=== PATIENT | male | born 1960 | race Caucasian/White ===

== ENCOUNTER → 2016-04-12 | Outpatient (CLI) | payer BC ==
[~2016-04-12] MED LIST: AMBIEN 10 MG TA10 MG PO; CYCLOBENZAPRINE10 MG PO; DOCUSATE SODIU100 MG PO; EFFEXOR XR75 MG PO; LIDODERM TP; NAPROSYN500 MG PO; NEURONTIN 400400 M1 PO; OXYCODONE-APAP1 EAC4 PO; PERCOCET 5-3251 EACH PO; TRAMADOL PO; VICODIN 5-5001 EACH PO
== END ==
LOC: ULTRA 11:01
DX: R94.4 Abnormal results of kidney function studies (principal)

== ENCOUNTER → 2016-04-26 | Outpatient (CLI) | payer BC ==
--- NOTE | ~2016-04-26 | CARDNUC ---
[facility] [place] [address] CARDIAC NUCLEAR IMAGING REPORT Name: FRANCIS CONKLIN GANESH Room #: REG CL [facility]#: [id number] Admission: 04/26/16 Attend Phys: Chente Licea MD Discharge: Date of : 60 Date of Service: 04/26/16 1646 Report #: [id number] THIS REPORT FOR: //name// CC: Chente Beauchamp DATE OF SERVICE: 04/26/2016 Stress myocardial perfusion imaging study. DATE OF STUDY: 04/26/2016. PRIMARY CARE PHYSICIAN: Jie Beauchamp DO GENDER: Male. LENS HARDENER: Chente Licea MD INDICATION: Chest pain. CORONARY HISTORY: None. CARDIOVASCULAR RISK FACTORS: Age and strong family history. CARDIAC MEDICATIONS: None. TYPE OF STUDY: The patient underwent a SPECT study. STRESS PROTOCOL: The patient exercised for 8 minutes and 45 seconds using a standard Garrett protocol. The resting heart rate was 77 beats per minute, increasing to 153 beats per minute during maximal exercise. This represented 93% of the maximum predicted heart rate for age. The resting blood pressure is 160/100 mmHg with no significant change during exercise. The work load achieved was approximately 10.1 METS. The test was terminated due the development of chest discomfort. ELECTROCARDIOGRAM: The resting electrocardiogram revealed sinus rhythm, otherwise normal. During exercise, there were no significant arrhythmias or ST segment changes. PERFUSION IMAGING: Myocardial perfusion imaging was performed using Cardiolite, 11.0 mCi for the resting images and 33.9 mCi for the stress images. This was a same-day rest-stress imaging protocol. Gated SPECT images were obtained. Comparison of the post-stress and rest images reveal a moderate sized reversible defect in the inferior wall. The gated portion of the study revealed normal [facility] [address] [place] [address] CARDIAC NUCLEAR IMAGING REPORT Name: FRANCIS CONKLIN Room #: REG CL [facility]#: [id number] Admission: 04/26/16 Attend Phys: Chente Licea MD Discharge: Date of : 60 Date of Service: 04/26/16 164 Report #: [id number] global and segmental LV systolic function, ejection fraction of 56%. IMPRESSION: 1. Clinical response, ischemic. 2. Stress ECG response, nonischemic. 3. Perfusion imaging, ischemia. 4. Ventricular function normal. CONCLUSION: This study reveals inferior wall ischemia. There is normal global and segmental LV systolic function. <ELECTRONICALLY SIGNED> By: Chente Licea MD 04/27/16 0757 1646 1726 Chente Licea MD /nt
== END ==
LOC: NUC 08:13
DX: R07.9 Chest pain, unspecified (principal)

== ENCOUNTER → 2016-05-01 | Outpatient (CLI) | payer BC ==
[~2016-05-01] VITALS: Ht 175.3 cm; Wt 91.6 kg
--- NOTE | ~2016-05-01 | CATHLAB ---
[facility] [address] [email or web address] [address] INVASIVE PROCEDURE REPORT Name: FRANCIS CONKLIN Room #: REG CL [facility]#: [id number] Admission: 05/01/16 Attend Phys: Chente Licea MD Discharge: Date of : 60 Date of Service: 05/01/16 1202 Report #: [id number] THIS REPORT FOR: //name// CC: Chente Beauchamp DATE OF SERVICE: 05/01/2016 INDICATIONS: Unstable angina, abnormal stress test. Full risks, benefits and alternatives of cardiac catheterization were explained to the patient. All questions were answered. Informed consent was obtained. A Barbeau test was performed on the right radial artery. The right wrist area was prepped and draped in a sterile manner. Lidocaine was given subcutaneously. A 5-Georgian sheath was inserted into the right radial artery via modified Seldinger technique. Nitroglycerin and verapamil was injected through the sheath. 5000 units of heparin was given through peripheral IV. CORONARY ANATOMY: The left main artery is a large caliber vessel, with no flow-limiting lesions. The LAD is a moderate to large size caliber vessel, travelling down the anterior wall and wrapping around the apex. There were no flow-limiting lesions in the LAD. There appears to be some mild ectatic areas in the proximal segment of the LAD. Within the ectatic area, there may be some minimal luminal irregularities noted. The left circumflex artery is a moderate to large size caliber vessel, dominant as it supplies a PDA in the distal segment. There were no flow-limiting lesions in the left circumflex. The first obtuse marginal artery is a moderate sized caliber vessel with an ectatic area in the proximal segment. After the ectatic area, it bifurcates into superior and inferior branch. There were no limiting lesions within these branches. The remaining segments of the left circumflex artery have no flow-limiting lesions. The RCA is a small, nondominant vessel with minimal luminal irregularities noted in the mid segment. A left ventriculogram was performed revealing normal LV systolic function, ejection fraction of 55%. The LVEDP is approximately 20 mmHg. There is no gradient across the outflow tract. At the end of the procedure, the sheath was removed and a Vasc band was applied for hemostasis. IMPRESSION: [facility] [address] [place] [address] INVASIVE PROCEDURE REPORT Name: FRANCIS CONKLIN Room #: REG [id number] Admission: 05/01/16 Attend Phys: Chente Licea MD Discharge: Date of : 60 Date of Service: 05/01/16 1202 Report #: [id number] 1. Patent [place] coronary arteries with a left dominant circumflex system. 2. Ectatic segments are noted in the proximal left anterior descending and proximal segment of the first obtuse marginal artery. 3. Minimal luminal irregularities noted in the proximal left anterior descending. 4. Normal left ventricular systolic function. <ELECTRONICALLY SIGNED> By: Chente Licea MD 05/02/16 0945 1202 1935 Chente Licea MD /nt
--- NOTE | ~2016-05-01 | EKG ---
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
[2016-05-01 10:06] VITALS: BP 137/89
[2016-05-01 10:12] LABS: HEMOGLOBIN 14.5 gm/dL (14.0-18.0); MCH 30.1 pg (26.0-34.0); MCHC 33.7 % (28.0-37.0); MCV 89.4 fL (80.0-100.0); RBC 4.81 mil/uL (4.50-6.00); RDW 13.8 % (10.5-14.5); WBC 7.6 thou/uL (4.0-11.0)
[2016-05-01 10:19] LABS: CALCIUM 8.9 mg/dL (8.5-10.1); CREATININE 1.4 mg/dL (0.6-1.3); POTASSIUM 3.7 mmol/L (3.5-5.1)
== END | disposition home or self-care (01) ==
LOC: CATH 09:19
PROVIDERS: Internal Medicine Cardiovascular Disease
DX: I25.10 Atherosclerotic heart disease of native coronary artery without angina pectoris (principal)